=== PATIENT | male | born 1950 | race Caucasian/White ===

== ENCOUNTER 2017-11-01 11:05 | Day surgery (SDC) | payer BC ==
--- NOTE | 2017-11-01 10:04 | PDHPUP ---
History & Physical Update H&P update statement: This history and physical update is based on an assessment of the patient which was completed after admission or registration (within 24 hours), but prior to the surgery/procedure. H&P update: H&P reviewed & patient examined, no change in patient's condition since H&P completed
[2017-11-01] MEDS ORDERED: LR 1,000 ML IV ONE (11:33)
[2017-11-01] MEDS ORDERED: LIDOCAINE 1% 2 ML INJ ID PRN (11:33)
[2017-11-01] MEDS ORDERED: cefOXitin SODIUM 2 GM in STERILE WATER INJ 21 ML IV ONE (11:33)
[2017-11-01] MEDS ORDERED: MIDAZOLAM 2 MG/2 ML VIAL ONE (13:31)
[2017-11-01] MEDS ORDERED: MIDAZOLAM 2 MG/2 ML VIAL IVP ONE (13:32)
[2017-11-01] MEDS ORDERED: ONDANSETRON 4 MG/2 ML VIAL IVP PRN (13:33)
[2017-11-01] MEDS ORDERED: ACETAMINOPHEN 500 MG TAB PO PRN (13:33)
[2017-11-01] MEDS ORDERED: LABETALOL HCL 5 MG/ML 20 ML MDV IVP PRN (13:33)
[2017-11-01] MEDS ORDERED: oxyCODONE IR 5 MG TAB PO PRN (13:33)
[2017-11-01] MEDS ORDERED: PROMETHAZINE HCL 25 MG/ML INJ IVP PRN (13:33)
[2017-11-01] MEDS ORDERED: NALOXONE HCL 0.4 MG/ML INJ IVP PRN (13:33)
[2017-11-01] MEDS ORDERED: LR 500 ML IV PRN (13:33)
[2017-11-01] MEDS ORDERED: ENALAPRILAT DIHYDRATE 1.25 MG/ML VIAL IVP PRN (13:33)
[2017-11-01] MEDS ORDERED: MEPERIDINE 25 MG/ML SYR IVP PRN (13:33)
[2017-11-01] MEDS ORDERED: HYDROCODONE/APAP 5/325 TAB PO PRN (13:33)
[2017-11-01] MEDS ORDERED: fentaNYL 100 MCG/2 ML INJ IVP PRN (13:33)
--- NOTE | 2017-11-01 13:33 | PDANEPAE ---
ANE Past Medical History - Cardiovascular History Hx Hypertension: Yes Hx Arrhythmias: No Hx Chest Pain: No Hx Coronary Artery / Peripheral Vascular Disease: No Hx CHF / Valvular Disease: No Hx Palpitations: No - Pulmonary History Hx COPD: No Hx Asthma/Reactive Airway Disease: No Hx Recent Upper Respiratory Infection: No Hx Oxygen in Use at Home: No Hx Sleep Apnea: Yes Sleep Apnea Screening Result - Last Documented: Positive - Neurologic History Hx Cerebrovascular Accident: No Hx Seizures: No Hx Dementia: No - Endocrine History Hx Diabetes: No Obesity: no - Renal History Hx Renal Disorders: No - Liver History Hx Hepatic Disorders: No - Neurological & Psychiatric Hx Hx Neurological and Psychiatric Disorders: No - Cancer History Hx Cancer: No - Congenital Disorder History Hx Congenital Disorders: No - GI History GERD: no Hx Gastrointestinal Disorders: No Gastrointestinal History Comment: ASHLEE FUNDOPLICATION 1999 - Surgical History Prior Surgeries: PREVIOUS PERIRECTAL ABCESS REPAIR. ASHLEE FUNDOPLICATION 1999. BILATERAL INGUINAL HERNIA REPAIR, EARLY ANE Review of Systems Review of Systems: - Exercise capacity METS (RN): 5 METS ANE Patient History - Allergies Allergies/Adverse Reactions: No Known Allergies Allergy (Unverified 10/30/17 14:38) - Home Medications Home Medications: Atorvastatin Calcium 11/01/17 [Last Taken 10/31/17] Propranolol HCl 11/01/17 [Last Taken 10/31/17] - NPO status NPO Since - Liquids (Date): 10/31/17 NPO Since - Liquids (Time): 23:00 NPO Since - Solids (Date): 10/31/17 NPO Since - Solids (Time): 23:00 - Anes Hx Anes Hx: slow to awaken from anesthesia - Smoking Hx Smoking Status: Never smoked - Family Anes Hx Family Hx Anesthesia Complications: NA ANE Labs/Vital Signs - Vital Signs Blood Pressure: 140/86 Heart Rate: 62 Respiratory Rate: 14 O2 Sat (%): 95 Height: 193.04 cm Weight: 99.79 kg ANE Physical Exam - Airway Neck exam: FROM Mallampati Score: Class 2 Mouth exam: normal dental/mouth exam - Pulmonary Pulmonary: no respiratory distress, no rales or rhonchi, clear to auscultation - Cardiovascular Cardiovascular: regular rate and rhythym, no murmur, rub, or gallop - ASA Status ASA Status: II ANE Anesthesia Plan Anesthesia Plan: GA w LMA
[2017-11-01] MEDS ORDERED: BUPIVACAINE/EPI 0.5% 30 ML SDV ONE (13:34)
[2017-11-01] MEDS ORDERED: fentaNYL 100 MCG/2 ML INJ ONE (13:40)
[2017-11-01] MEDS ORDERED: PROPOFOL 200 MG/20 ML VIAL ONE (13:40)
[2017-11-01] MEDS ORDERED: ONDANSETRON 4 MG/2 ML VIAL ONE (13:41)
[2017-11-01] MEDS ORDERED: DEXAMETHASONE 4 MG/ML VIAL ONE ×2 (13:41)
[2017-11-01] MEDS ORDERED: LIDOCAINE 2% 5 ML SDV ONE (13:41)
[2017-11-01] MEDS ORDERED: KETOROLAC 30 MG/1 ML SDV IVP ONE (14:55)
--- NOTE | 2017-11-01 14:55 | POSTANESTH ---
Post Anesthetic Evaluation Cardiovascular Status: Normal, Stable, Similar to Pre-Op Cond Respiratory Status: Normal, Stable, Similar to Pre-op Cond. Level of Consciousness/Mental Status: Can Participate in Eval, Moderately Sleepy Pain Control: Adequate, Prn Tx Ordered Nausea/Vomiting Control: Adequate, Prn Tx Ordered Complications Possibly Related to Anesthesia: None Noted
[2017-11-01] MEDS ORDERED: KETOROLAC 30 MG/1 ML SDV ONE (15:10)
[2017-11-01 16:53] VITALS: BP 137/79
--- NOTE | 2017-11-27 18:32 | GOP ---
[f rep st] OPERATIVE REPORT DATE OF OPERATION: 11/01/2017 SURGEON: Raymundo Gerber MD [employer] TECHNICIAN: None. ANESTHESIOLOGIST: Dr. Sheehan PREOPERATIVE DIAGNOSIS: [id number] and possible perirectal abscess. POSTOPERATIVE DIAGNOSIS: [id number] and possible perirectal abscess. PROCEDURE PERFORMED: Incision and drainage of possible perirectal abscess, and anal fistulectomy wit h seton placement. 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 The area of possible flu ctuation did not contain much of any infection after I and D. This was on the opposite side of the r ectum from the fistula. ESTIMATED BLOOD LOSS: Negligible. DESCRIPTION OF PROCEDURE: The patient was taken to the operating room where he received satisfactory general endotracheal anesthesia. He was placed in the lithotomy position, prepped and draped in the usual sterile fashion. Anesthesia with Dr. Sheehan. Anus was infiltrated with 0.5% Marcaine and dila jaja gently to 3 fingerbreadths. Anoscopy was performed. The fistula tract was probed, and some of t he peroxide was injected in the external opening. The internal opening was identified and probed wit h a malleable probe; however, it crossed the majority of the anal sphincter, and it was elected to ma rk this canal with a seton suture of 0 silk, which was tied around the sphincter. The majority of th e fistula tract was completely excised from outside the anus up to and behind the sphincter muscle. Hemostasis was carefully obtained. The wound was infiltrated with 0.5% Marcaine, and the base was pa rtially cauterized. A short 2nd incision was made over the area thought to be possibly fluctuant at the 11 o'clock position. However, this did not contain any significant pus and was packed with a sma ll amount of iodoform gauze. He tolerated the procedure quite well, was taken to the recovery room i n good condition. All layers were infiltrated with 0.5% Marcaine. COMPLICATIONS: None. /[id number]/MODL
== END 2017-11-01 16:57 | disposition home or self-care (01) ==
LOC: FSGY 11:05
PROVIDERS: ATTEND Surgery
PROC: 0DQQ0ZZ Repair Anus, Open Approach (ICD-10-PCS; principal; 2017-11-01 12:30)
PROC: 0DBQ7ZZ Excision of Anus, Via Natural or Artificial Opening (ICD-10-PCS; principal; 2017-11-01 12:30)
DX: K60.4 Rectal fistula (principal); I10 Essential (primary) hypertension; G47.30 Sleep apnea, unspecified
CPT/HCPCS: J0694; J1100; J1885; J2250; J2405; J2704; J3010